=== PATIENT | male | born 1990 | race Two or more races ===

== ENCOUNTER 2025-02-28 07:49 | Emergency (ER) | payer OTHER ==
[~2025-02-28] VITALS: Ht 177.8 cm; Wt 78.5 kg
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
[2025-02-28] MEDS ORDERED: ACETAMINOPHEN 500 MG TAB or CAP PO ONE (08:16)
[2025-02-28] MEDS: ACETAMINOPHEN 325 MG TAB PO ONE (08:17)
[2025-02-28 08:29] VITALS: BP 135/91; PULSE 105; RESP 16; TEMP 98.7; O2SAT 100
[2025-02-28] MEDS ORDERED: METH-1182 PO (08:34)
[2025-02-28] MEDS ORDERED: IBUP-1454 PO (08:34)
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
== END 2025-02-28 08:41 | disposition home or self-care (01) ==
LOC: ER 07:52
DX: S16.1XXA Strain of muscle, fascia and tendon at neck level, initial encounter (principal); S39.012A Strain of muscle, fascia and tendon of lower back, initial encounter; V49.9XXA Car occupant (driver) (passenger) injured in unspecified traffic accident, initial encounter; Y93.89 Activity, other specified; Y92.410 Unspecified street and highway as the place of occurrence of the external cause; Y99.8 Other external cause status
CPT/HCPCS: 72040; 72100